=== PATIENT | female | born 1940 | race Caucasian/White ===

== ENCOUNTER 2017-05-28 16:07 | Outpatient (CLI) | payer MEDICARE | END 2017-05-28 23:59 | disposition home or self-care (01) | LOC: VAS 16:07 | PROVIDERS: ATTEND Internal Medicine | DX: M25.572 Pain in left ankle and joints of left foot (principal); M25.472 Effusion, left ankle; Z86.718 Personal history of other venous thrombosis and embolism | CPT/HCPCS: 93971 ==